=== PATIENT | female | born 1935 | race Caucasian/White ===

== ENCOUNTER 2022-06-25 13:13 | Outpatient (REF) | payer MEDICARE, SELFPAY ==
--- NOTE | ~2022-06-25 | XR_ITS ---
EXAMINATION: XR CALCANEUS, RIGHT CLINICAL INFORMATION: Right heel pain. COMPARISON: None . TECHNIQUE: Lateral and axial views of the right calcaneus were obtained. FINDINGS: There is a small calcaneal heel enthesophyte. Ankle mortise and subtalar joints are normal. There is no visible acute fracture, dislocation or subluxation seen. The soft tissues are normal. XR/XR calcaneus RT min 2V IMPRESSION: Small calcaneal heel enthesophyte. No visible acute fracture or dislocation seen.
== END 2022-06-25 13:14 | disposition home or self-care (01) ==
LOC: HO.XRAY 13:13
PROVIDERS: PCP Nurse Practitioner Family; Visit Provider Psychiatry & Neurology Neurology
DX: M77.30 Calcaneal spur, unspecified foot (principal)
CPT/HCPCS: 73650

== ENCOUNTER 2025-05-08 10:47 | Outpatient (AMB) | payer MEDICARE, SELFPAY ==
--- NOTE | 2025-05-08 11:23 | A.OFFVIS_ITS ---
Intake Visit Reasons: 1 yr follow up Allergies No Known Allergies Allergy (Verified 05/01/25 08:14) Medication List - Last Reconciled 05/08/25 by David Alegria MD alendronate 70 mg PO QWEEK amlodipine-benazepril 10-20 mg 1 cap PO DAILY escitalopram oxalate 10 mg PO DAILY memantine 10 mg PO BID omeprazole 20 mg PO DAILY rivastigmine tartrate 6 mg PO BID HPI Comments Details: She is still living independently in a community living. Son takes care of bills and daughter of her meds. Does not drive. Memory was not so good. She was having trouble remembering some things, but they were not important and she had people to help remind her of the important things. Her daughter noted that she needed more frequent reminders and would forget sometimes within 5 minutes. She would get off the phone with her friend and forget what time they said they would be picking her up when her daughter asked. Her daughter said her friends have also noticed a decline in memory. It happened around the time she was changed from rivastigmine patch to capsules this past . She seemed to have better compliance with capsules. She had a locked electronic medication box that was timed to open and remind her to take medications. It was managed by her daughter. Sometimes, she would forget to change patch for days at a time. She was living alone in elderly community. She did not do cooking or cleaning. Sometimes, she forgot if she ate. She was not eating balanced meals. Her daughter put some cameras in her home. No falls. Sleep was okay. Mood was okay. No behavior concerns. Fractured pelvis in 08/2023 from fall[address] drive. Goes out eating and shopping with friends. Mild, short-term memory problems since late 2015, sometimes misplaces things and has to take notes. Balance is not great since fall 2017. In 07/2017, she had 2 falls without becoming dizzy or losing consciousness. She hit her head pretty hard. She had MRI of the brain with and without gadolinium at the end of 07/2017. MRIs showed age-related minor microvascular changes. No significant atrophy greater than expected for age. No cerebellar lesions. She complains of numbness under the toes on the right for many months. [facility] Medical History (Updated 05/08/25 @ 11:33 by David Alegria MD) Neuropathy of both feet Hypertension Ataxia MCI (mild cognitive impairment) Physical Exam Neuro Other: Neurological: Abnormal neurological findings:??MMS score 21/30. Minimal truncal ataxia on t andem walking.?Mental Status:??alert, as below.?Cranial Nerves:??Pupils are equal, round and reactive to light. Fundoscopy shows normal disc bilaterally. External occular muscles are intact. Visual christensen are full, no ptosis. Face is symmetrical, no facial weakness or droop. Facial sensations are normal. Tongue protrudes in midline. Palate elevates symmetrically. Shoulder shrugging is normal..?Motor Examination:??Normal muscle tone, bulk and strength,?No atrophy or fasciculations,?No drift of the extended upper extremities,?Deep tendon reflexes are 2+?,?Plantars are flexor?.?Straight Leg Raising:??90 degrees.?Sensory Exam:??Normal light touch, temperature, pinprick, vibration and joint-position sensations?,?Rhomberg sign is absent.?Coordination:??no ataxia,?no titubation,?hdpenv-iu-ilrz, dzyx-oeor-iblb test and rapid alternating movements were normal.?Gait Exam:??Walking with walking stick.?Cerebellar Signs:??Pdkrqk-xu-roaf and mlfa-xi-whfw is normal,?no dysdiadochokinesia?.?Extrapyramidal System:??No tremor, rigidity with normal facial expressions,?No bradykinesia, no bradyphrenia. Normal arm swing and posture. No propulsion or retropulsion.?Speech:??Normal,?no dysphasia or dysart hria..? Mini Mental Status Exam: Level of Consciousness:??Alert.?Orientation:??Knows correct month, not day and season. Does not know year or date.?Knows state. Does not know city or county. Registration:??Able to register 3 objects.?Attention:??Serial 7's performed accurately to 93.?Recall:??Able to recall 0/ 3 objects.?Language:??Normal spontaneous speech, fluency, repetition,naming, comprehension, reading and writing.?Total Score:??21/30.? Assessment & Plan Assessment & Plan (1) MCI (mild cognitive impairment): Code(s): G31.84 - Mild cognitive impairment of uncertain or unknown etiology Category: Medical (2) Ataxia: Code(s): R27.0 - Ataxia, unspecified Category: Medical Plan: Increase Rivastigmine to 9mg a day for a month , and then 12mg/ day ( 6mg bid) (3) Neuropathy of both feet: Code(s): G57.93 - Unspecified mononeuropathy of bilateral lower limbs Category: Medical Plan Increase Rivastigmine to 9mg a day for a month , and then 12mg/ day ( 6mg bid) Medications: New rivastigmine tartrate 6 mg (2 x 3 mg) PO BID 120 caps 6RF 30 days Coding Level of Care Code Est Pt Level 4 (60465) Diagnoses MCI (mild cognitive impairment) G31.84 Ataxia R27.0 Neuropathy of both feet G57.93
--- OUTSIDE RECORDS SUMMARY | 2025-05-08 12:20 | XMS_ITS | Clinical Summary ---
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 Reported on 08/24/2016 Active ALPRAZolam (XANAX) 0.25 MG tablet Take 0.25 mg by mouth nightly as needed for sleep. Reported on 09/25/2016 Active b complex vitamins capsuleIndicatio ns:dose unknown Take 1 capsule by mouth daily. Indications: dose unknown Active cholecalciferol (VITAMIN D3) 1,000 unit tabletIndication s:dose unknown Take 1,000 Units by mouth daily. Indications: dose unknown Active vitamin E 100 unit Cap capsuleIndicatio ns:dose unknown Take 100 Units by mouth daily. Indications: dose unknown Active ascorbic acid (VITAMIN C) 250 MG tabletIndication s:dose unknown Take 250 mg by mouth daily. Indications: dose unknown Active vitamin A 49666 UNIT capsuleIndicatio ns:dose unknown Take 10,000 Units by mouth daily. Indications: dose unknown Active glucosamine 500 mg CapIndications:d ose unknown Take 500 mg by mouth 3 (three) times a day. Indications: dose unknown Active calcium acetate (PHOSLO) 667 mg (169 mg elemental) capsuleIndicatio ns:dose unknown Take 1,334 mg by mouth 3 (three) times a day with meals. Indications: dose unknown Active omega 1-qxo-yxz-fish oil 1,000 mg (120 mg-180 mg) CapIndications:d ose unknown Take 1 capsule by mouth daily. Indications: dose unknown Active zinc sulfate 220 mg TabIndications:d ose unknown; pt also takes galric supplement, salinum, and ginko; does unkown for all vitamin supplements Take 220 mg by mouth daily. Indications: dose unknown; pt also takes galric supplement, salinum, and ginko; does unkown for all vitamin supplements Active oxybutynin (DITROPAN) 5 MG tablet Take 5 mg by mouth 3 (three) times a day. Active oxyCODONE-acetam inophen (PERCOCET) 5-325 mg per tablet Take 1 tablet by mouth every 6 (six) hours as needed for pain (specific location in comments). Partial fill ok at patient request. 5 tablet 0 6 Active Additional Information Patient not taking.Reported on 09/25/2016 dorzolamide-heidi lol (COSOPT) 22.3-6.8 mg/mL ophthalmic solution Place 1 drop into the left eye 2 (two) times a day. 10 mL 12 6 Active hypromellose (ARTIFICIAL TEARS,[id number] RO,) Drop Place 1 drop into each eye 4 (four) times a day as needed (preservative free). 1 Bottle 11 6 Active pilocarpine (ISOPTO CARPINE) 2 % ophthalmic solution Place 1 drop into the left eye 2 (two) times a day. 15 mL 12 6 Active prednisoLONE acetate (PRED FORTE) 1 % ophthalmic suspension Place 1 drop into the left eye 4 (four) times a day. 5 mL 3 6 Active Additional Information Patient not taking.Reported on 04/13/2017 ketorolac (ACULAR) 0.5 % ophthalmic solution Place 1 drop into the left eye 4 (four) times a day. 5 mL 3 6 Active Additional Information Patient not taking.Reported on 04/13/2017 brimonidine (ALPHAGAN P) 0.15 % ophthalmic solution Place 1 drop into the left eye 3 (three) times a day. 5 mL 12 6 Active bimatoprost (LUMIGAN) 0.01 % Drop Place 1 drop into the left eye nightly. 1 Bottle 12 6 Active Additional Information Patient not taking.Reported on 04/13/2017 latanoprost (XALATAN) 0.005 % ophthalmic solution Place 1 drop into the right eye nightly. Active sodium chloride (JACINTO 128) 2 % ophthalmic solution Place 1 drop into the right eye nightly. 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 Not on eldon e 01/17/2023 Are you concerned about learning? Not on file 01/17/2023 No 01/17/2023 No 01/17/2023 Digital Access Answer Date Recorded No 02/14/2023 No 02/14/2023 No 02/14/2023 Reliable internet access at home? Not on file 02/14/2023 Device with a working camera? Not on file Comments Unknown Sex and Gender Information Value Date Recorded Sex Assigned at Not on file Legal Sex Female 5:12 PM EST Gender Identity Not on file Sexual Orientation Not on file Last Filed Vital Signs Vital Sign Reading Time Taken Comments Blood Pressure 145/67 06/16/2016 4:15 PM EDT Pulse 75 06/16/2016 1:47 PM EDT Temperature 36.3 C (97.3 F) 06/16/2016 4:03 PM EDT Respiratory Rate 22 06/16/2016 4:15 PM EDT Oxygen Saturation 96% 06/16/2016 4:03 PM EDT Inhaled Oxygen Concentration - - Weight 46.7 kg (103 lb) 06/16/2016 1:47 PM EDT Height 147.3 cm (4' 10 ) 06/16/2016 1:47 PM EDT Body Mass Index 21.53 06/16/2016 1:47 PM EDT Plan of Treatment Health Maintenance Due Date Last Done Comments Adult Td,Tdap Booster 1936 DEPRESSION SCREENING 1948 PNEUMOCOCCAL VACCINES (50+ years) (1 of 1 - PCV) 1986 ZOSTER VACCINES (1 of 2) 1986 OSTEOPOROSIS SCREENING INITI AL (ONE-TIME) 2001 RSV VACCINE (1 - 1-dose 75+ series) 2011 COVID-19 VACCINE (3 - 2023-2 5 season) 2024 10/22/2020, 10/01/2020 HEPATITIS A VACCINES Aged Out No long er eligible based on patient's age to complete this topic HIB VACCINES Aged Out No longer eligi ble based on patient's age to complete this topic MENINGOCOCCAL VACCINES (ACWY) Aged Out No longer eligible based on patient's age to complete this topic MENINGOCOCCAL VACCINES (B) Aged Out N o longer eligible based on patient's age to complete this topic Medical Devices Implanted Type Area Manufacturer'S Service Representative Device Identifier Shelf Expiration Date Model / Serial / Lot Dental Implant Iol,3 Piece Acrylic,Ec-3 Pal, 20.0d - [id number] Implanted:Qty: 1 on 02/27/2016 by Larry Daniels MD at [facility] 10/21/2020 / [id number] / Insurance MEDICARE PART A & B Member Subscriber Plan / Payer (Ef fective 2001-Present) Name:Geovanna Concepcion Member ID:[id number] Relation to Subscriber:Self Name:Geovanna Concepcion Subscriber ID:[id number] Payer ID:[id number] Group ID:Not on file Type:Medicare Address: [facility] [employer] [facility] [employer] [facility] [address] [place] [address] [employer] MEDEX SUPPLEMENT MEDICARE PART A & B [facility] MEDEX SUPPLEMENT MEDICARE PART A & B [employer] MEDEX SUPPLEMENT MEDICARE PART A & B [employer] MEDEX SUPPLEMENT MEDICARE PART A & B Member Subscriber Plan / Payer ( fective 2001-Present) Name:Geovanna Concepcion Member ID:[id number] Relation to Subscriber:Self Name:Ganek, Geovanna A Subscriber ID:[id number] Payer ID:[id number] Group ID:Not on file Type:Medicare Address: [employer] [address] [place] [phone] [employer] MEDEX SUPPLEMENT MEDICARE PART A & B [employer] MEDEX SUPPLEMENT MEDICARE PART A & B Member Subscriber Plan / Payer ( fective 2001-) Name:Geovanna Concepcion Member ID:[id number] Relation to Subscriber:Self Name:Geovanna Concepcion Subscriber ID:[id number] Payer ID:[id number] Group ID:Not on file Type:Medicare Address: [facility] [employer] [facility] [employer] [facility] [address] [place] [address] [employer] MEDEX SUPPLEMENT MEDICARE PART A & B [employer] MEDEX SUPPLEMENT MEDICARE PART A & B [employer] MEDEX SUPPLEMENT Advance Directives For more information, please contact: [phone] (9AM - 5PM [facility], Wednesday-Wednesday) * Full Code (Presumed) (Latest Code Status on File) Date Activated Date Inactivated Comments 06/16/2016 9:22 AM 06/16/2016 6:38 PM * Full Code (Presumed) Date Activated Date Inactivated Comments 02/27/2016 2:09 PM 02/27/2016 8:11 PM * Full Code (Presumed) Date Activated Date Inactivated Comments 02/27/2016 10:07 AM 02/27/2016 2:09 PM Care Teams Doweling Machine Operator Relationship Specialty Start Date End Date Dk Montiel MD [address] [place] [id number] PCP - General Internal Medicine 08/24/16 Additional Source Comments The information contained in this document represents components of the legal health record. It is not the complete legal health record.[facility]
== END 2025-05-08 11:39 | disposition home or self-care (01) ==
LOC: HO.HSM 10:47
PROVIDERS: PCP Nurse Practitioner Family; Referring Provider Nurse Practitioner Family; Visit Provider Psychiatry & Neurology Neurology
DX: G31.84 Mild cognitive impairment of uncertain or unknown etiology (principal); R27.0 Ataxia, unspecified; G57.93 Unspecified mononeuropathy of bilateral lower limbs
CPT/HCPCS: 99214

== ENCOUNTER → 2025-05-08 10:47 | Outpatient (BNVA) | payer MEDICARE, SELFPAY | PROVIDERS: PCP Nurse Practitioner Family; Referring Provider Nurse Practitioner Family; Visit Provider Psychiatry & Neurology Neurology | DX: G31.84 Mild cognitive impairment of uncertain or unknown etiology (principal); G57.93 Unspecified mononeuropathy of bilateral lower limbs; R27.0 Ataxia, unspecified | CPT/HCPCS: 99212 ==